=== PATIENT | male | born 1970 | race African-American/Black ===

== ENCOUNTER 2024-11-22 06:54 | Observation (INO) ==
[2024-11-22] MEDS: LR 1,000 ML IV 1,000 ML IV ONE (07:37)
[2024-11-22] MEDS: DIPRIVAN VIAL 20 ML ONE (09:23)
[2024-11-22] MEDS: VERSED ONE (09:23)
[2024-11-22] MEDS: FENTANYL VIAL INJ 100 mcg ONE (09:23)
[2024-11-22] MEDS: NS 100 ML IV 100 ML ONE (09:29)
[2024-11-22] MEDS: ANCEF VIAL 1 GRAM ONE (09:29)
[2024-11-22] MEDS: ZOFRAN INJ 4 MG VIAL ONE (09:30)
[2024-11-22] MEDS: PEPCID 20 MG VIAL ONE (09:30)
[2024-11-22] MEDS: LR 1,000 ML IV 700 ML IV PRN (09:30)
[2024-11-22] MEDS: REGLAN INJ 10 MG VIAL ONE (09:30)
[2024-11-22] MEDS ORDERED: PRECEDEX INJ VIAL ONE (09:30)
[2024-11-22] MEDS ORDERED: KETAMINE HCL ONE (09:30)
[2024-11-22] MEDS ORDERED: ULTANE GAS IN ONE (09:30)
[2024-11-22] MEDS ORDERED: XYLOCAINE 2 % (PLAIN) ONE (09:30)
[2024-11-22] MEDS: ANCEF VIAL 1 GRAM IV PRN (09:38)
[2024-11-22] MEDS: BETADINE SOLN ONE (09:38)
[2024-11-22] MEDS: VERSED IVP PRN (09:40)
[2024-11-22] MEDS: ZOFRAN INJ 4 MG VIAL IVP PRN (09:41)
[2024-11-22] MEDS: PEPCID 20 MG VIAL IVP PRN (09:42)
[2024-11-22] MEDS: REGLAN INJ 10 MG VIAL IVP PRN (09:44)
[2024-11-22] MEDS: PRECEDEX INJ VIAL IVP PRN (09:47)
[2024-11-22] MEDS ORDERED: XYLOCAINE 2 % (PLAIN) PRN (09:48)
[2024-11-22] MEDS: EPHEDRINE SULFATE INJ ONE (09:54)
[2024-11-22] MEDS: OFIRMEV IV 1000 MG VIAL 1,000 MG/100 ML VIAL IV ONE (09:55)
[2024-11-22] MEDS: FENTANYL VIAL INJ 100 mcg IVP PRN (09:58)
[2024-11-22] MEDS: MARCAINE/EPINEPHRINE ONE (10:00)
[2024-11-22] MEDS: OFIRMEV IV 1000 MG VIAL 1,000 MG/100 ML VIAL IV PRN (10:00)
[2024-11-22] MEDS: KETAMINE HCL IV PRN (10:07)
[2024-11-22] MEDS: DIPRIVAN VIAL 200 ML IVP PRN (10:12)
[2024-11-22] MEDS: DILAUDID INJ ONE (10:15)
[2024-11-22] MEDS: EPHEDRINE SULFATE INJ IVP PRN (10:15)
[2024-11-22] MEDS: DILAUDID INJ IVP PRN ×2 (10:17→18:18)
[2024-11-22] MEDS ORDERED: ZOFRAN INJ 4 MG VIAL IVP PRN (10:18)
[2024-11-22] MEDS ORDERED: BARHEMSYS INJ IVP PRN (10:18)
[2024-11-22] MEDS ORDERED: BENADRYL INJ 50 MG VIAL IVP PRN (10:18)
[2024-11-22] MEDS ORDERED: DILAUDID INJ IVP PRN (10:18)
[2024-11-22] MEDS: D5 1/2 NS 1,000 ML 1,000 ML IV SCH (13:00)
[2024-11-22] MEDS: FLAGYL IV PREMIX 500 MG BAG 500 MG/100 ML BAG IV SCH (13:00)
[2024-11-22 16:17] VITALS: BMI 21.9
[2024-11-23 05:17] VITALS: RESP 16; O2SAT 99
[2024-11-23 05:43] LABS: BASOPHILS # (AUTO) 0.1 X10^3/uL (0.0-0.1); EOSINOPHILS % (AUTO) 0.1 % (0.9-2.9); HEMATOCRIT 34.5 % (42.0-54.0); HEMOGLOBIN 12.2 g/dL (13.5-18.0); LYMPHOCYTES # (AUTO) 0.5 X10^3/uL (1.3-2.9); LYMPHOCYTES % (AUTO) 8.3 % (21.0-51.0); MEAN CORPUSCULAR HGB CONC 35.5 g/dL (33.0-35.0); MEAN CORPUSCULAR VOLUME 101.5 fL (80.0-100.0); MEAN PLATELET VOLUME 7.9 fL (7.4-11.0); MONOCYTES # (AUTO) 0.5 x10^3/uL (0.3-0.8); MONOCYTES % (AUTO) 7.9 % (0.0-13.0); NEUTROPHILS # (AUTO) 5.4 x10^3/uL (2.2-4.8); NEUTROPHILS % (AUTO) 82.7 % (42.0-75.0); PLATELET COUNT 67 X10^3/uL (150.0-450.0); RED CELL DISTRIBUTION WIDTH 13.2 % (11.6-16.5); WHITE BLOOD COUNT 6.6 X10^3/uL (3.6-10.0)
[2024-11-23 05:55] LABS: ALANINE AMINOTRANSFERASE 53 Units/L (12-78); ALBUMIN 3.6 g/dL (3.4-5.0); ALKALINE PHOSPHATASE 81 Units/L (46-116); ASPARTATE AMINO TRANSFERASE 330 Units/L (15-37); BLOOD UREA NITROGEN 5 mg/dL (7-18); CALCIUM 8.8 mg/dL (8.5-10.1); CARBON DIOXIDE 27.6 mmol/L (21-32); CHLORIDE 97 mmol/L (98-107); COR NA(FOR HYPERGLY) 137 mmol/L (136-145); CREATININE 1.12 mg/dL (0.70-1.30); GLUCOSE 132 mg/dL (65-99); POTASSIUM 3.4 mmol/L (3.5-5.1); SODIUM 136 mmol/L (136-145); eGFR NON BLACK RACES > 60 (>60)
[2024-11-23] MEDS ORDERED: CONSULT PHARMACY - POTASSIUM & MAGNESIUM XX SCH (07:00)
[2024-11-23 07:59] VITALS: BP 138/78; PULSE 98; TEMP 98.6
[2024-11-23] MEDS: K-DUR TAB 20 MEQ PO SCH (09:10)
[2024-11-23] MEDS: MAG-OX TAB PO SCH (09:10)
[2024-11-23] MEDS: ZOFRAN INJ 4 MG VIAL IVP PRN (09:14)
== END 2024-11-23 12:10 | disposition home or self-care (01) ==
LOC: MED/SURG 06:54 → SURG1 06:54
PROVIDERS: ADMIT Surgery; ATTEND Surgery
DX: Z59.86 Financial insecurity; K62.5 Hemorrhage of anus and rectum; K64.8 Other hemorrhoids; E83.42 Hypomagnesemia; K64.3 Fourth degree hemorrhoids; K64.2 Third degree hemorrhoids; E87.6 Hypokalemia; R74.01 Elevation of levels of liver transaminase levels; R73.09 Other abnormal glucose